=== PATIENT | female | born 1950 | race Caucasian/White ===

== ENCOUNTER 2016-09-12 11:40 | Emergency (ER) | payer OTHER ==
[~2016-09-12] VITALS: Ht 172.7 cm; Wt 70.0 kg
[2016-09-12 11:43] VITALS: BP 124/70; PULSE 81; RESP 14; TEMP 98; O2SAT 99
--- NOTE | 2016-09-12 11:52 | PD ---
HPI Chief Complaint: Fall Time Seen by Provider: 11:50 Travel History International Travel<30 days: No Contact w/Intl Traveler<30days: No Traveled to known affect area: No History of Present Illness HPI 65-year-old female presents emergency department status post fall while playing pickle ball earlier this morning. Patient states she sort of tripped and fell sideways, when she felt a "pull and twist of the left lateral ankle". Patient states it didn't hurt right away but as she was driving home she had increased shooting pain and felt she should get it checked out. She has no other injury. She did not hit her head or have any type of loss of consciousness. Patient states at rest the pain is minimal but with certain movements it is 8/10. She has no known drug allergies. [facility] Social History Alcohol Use: Yes Tobacco Use: No Substance Use: No Allergies-Medications (Allergen,Severity, Reaction): Coded Allergies: No Known Allergies (Unverified , 09/12/16) Review of Systems Except as stated in HPI: all other systems reviewed are Neg General / Constitutional: No: Fever Eyes: No: Visual changes HENT: No: Headaches Cardiovascular: No: Chest Pain or Discomfort Respiratory: No: Shortness of Breath Gastrointestinal: No: Abdominal Pain Genitourinary: No: Dysuria Musculoskeletal: Positive: Arthralgias, Limited ROM, Pain Skin: No Rash Neurologic: No: Weakness Psychiatric: No: Depression Endocrine: No: Polydipsia Hematologic/Lymphatic: No: Easy Bruising Physical Exam Narrative GENERAL: Patient appears in no acute distress. SKIN: Warm and dry. Normal color. Normal turgor. No obvious signs of trauma. HEAD: Atraumatic. Normocephalic. EYES: Pupils equal and round. No scleral icterus. No injection or drainage. ENT: No nasal bleeding or discharge. Mucous membranes pink and moist. Pharynx is clear. Airway is patent. NECK: Trachea midline. No bony tenderness or step-off. Range of motion is full and nontender. CARDIOVASCULAR: Regular rate and rhythm. RESPIRATORY: No accessory muscle use. Clear to auscultation. Breath sounds equal bilaterally. MUSCULOSKELETAL: Extremities without clubbing, cyanosis, or edema. No obvious deformities. No significant swelling is noted over the left ankle, however the patient has significant tenderness with palpation of the lateral malleolus. Range of motion seems to be intact but somewhat limited secondary to pain. NEUROLOGICAL: Awake and alert. No obvious cranial nerve deficits. Motor grossly within normal limits. Five out of 5 muscle strength in the arms and legs. Normal speech. PSYCHIATRIC: Appropriate mood and affect; insight and judgment normal. Data Data Last Documented VS Vital Signs Date Time Temp Pulse Resp B/P Pulse Ox O2 Delivery O2 Flow Rate FiO2 09/12/16 11:43 98.0 81 14 124/70 99 Orders Ankle, Complete ([id number]) (09/12/16 11:52) Ice/Cold Pack (09/12/16 11:52) Boot Fracture (09/12/16 ) MDM Medical Decision Making Medical Screen Exam Complete: Yes Emergency Medical Condition: Yes Differential Diagnosis Fall. Left ankle sprain. Fracture. Narrative Course Patient is medically stable at time of exam. X-ray of the left ankle is ordered. Ice pack is applied to the area for comfort. X-ray shows small avulsion fracture to the left distal fibula/lateral malleolus. Cam Walker boot with instructions. Patient is to take Tylenol as needed for pain. She should not weight-bear until seen by podiatry. She can ice the area frequently, and elevate. Patient to call Dr. Freitas, the poultry husbandry teacher on-call, for follow-up. Patient can return to emergency department as necessary. Diagnosis Primary Impression: Closed fracture of left lateral malleolus Qualified Code: S82.65XA - Closed nondisplaced fracture of lateral malleolus of left fibula, initial encounter Referrals: Zaida Freitas DPM Patient Instructions: Ankle Fracture (ED), General Instructions Additional Instructions: X-ray shows small avulsion fracture to the left distal fibula/lateral malleolus. Cam Walker boot as instructed. Patient is to take Tylenol as needed for pain. She should not weight-bear until seen by podiatry. She can ice the area frequently, and elevate. Patient to call Dr. Freitas, the poultry husbandry teacher on-call, for follow-up. Patient can return to emergency department as necessary. Med/Other Pt SpecificInfo: No Meds Exist/No RX given Disposition: 01 DISCHARGE HOME Condition: Stable Dillon Gaona Sep 12, 2016 11:52 Condition: Stable Dillon Gaona Sep 12, 2016 11:52
--- NOTE | 2016-09-12 12:31 | RADRPT ---
EXAM DATE/TIME: 09/12/2016 12:10 [facility] COMPARISON: No previous studies available for comparison. INDICATIONS : Left ankle pain after falling this morning. MEDICAL HISTORY : None. SURGICAL HISTORY : None. ENCOUNTER: Initial ACUITY: 1 day PAIN SCORE: 3/10 LOCATION: Left ankle. FINDINGS: 3 views of the left ankle demonstrate a curvilinear osseous fragment at the tip of the lateral malleo augusto. Ends may be slightly corticated. No other fracture or dislocation is seen. Ankle mortise is inta ct. No soft tissue swelling is identified. There is no radiopaque foreign body. CONCLUSION: Curvilinear osseous fragment at the tip of the lateral malleolus could represent an avulsion fracture at this location versus change related to old injury. I do not appreciate any adjacent soft tissue s welling so it is possible this is a chronic finding. Suggest correlation for pain at the tip of the l ateral malleolus. Warren Lara MD on September 12, 2016 at 12:28 Board Certified Radiologist. This report was verified electronically.
== END 2016-09-12 14:08 | disposition home or self-care (01) ==
LOC: NEPK 11:40
DX: S82.65XA Nondisplaced fracture of lateral malleolus of left fibula, initial encounter for closed fracture (principal); W01.0XXA Fall on same level from slipping, tripping and stumbling without subsequent striking against object, initial encounter; Y93.73 Activity, racquet and hand sports; Y92.838 Other recreation area as the place of occurrence of the external cause
CPT/HCPCS: 73610; 99283; L2114